=== PATIENT | female | born 1975 | race Two or more races ===

== ENCOUNTER 2017-05-16 12:44 | Outpatient (CLI) | payer OTHER | END 2017-05-16 12:49 | disposition home or self-care (01) | LOC: SONOGRAMA 12:44 | DX: N84.0 Polyp of corpus uteri (principal); D25.9 Leiomyoma of uterus, unspecified ==

== ENCOUNTER → 2019-09-30 11:44 | Outpatient (CLI) | payer OTHER | END | disposition home or self-care (01) | LOC: LAB 11:44 | DX: E03.8 Other specified hypothyroidism (principal); D63.8 Anemia in other chronic diseases classified elsewhere; N30.90 Cystitis, unspecified without hematuria; E78.00 Pure hypercholesterolemia, unspecified; R73.09 Other abnormal glucose ==

== ENCOUNTER 2019-11-26 10:26 | Inpatient (IN) | payer OTHER ==
[~2019-11-26] VITALS: Ht 157.5 cm; Wt 57.6 kg
[2019-12-10] MEDS ORDERED: SYNTHROID150 MCG PO (13:03)
[2019-12-10] MEDS ORDERED: [UNRECOGNIZED DRUG - OTHER] PO (13:04)
[2019-12-17] MEDS ORDERED: KETO10TA2 PO (08:05)
[2019-12-19] MEDS ORDERED: KETO10TA2 PO (10:34)
[2019-12-19] MEDS ORDERED: OXYC1TAB9 PO (10:34)
== END 2019-12-19 11:14 | disposition home or self-care (01) | DRG 743 ==
LOC: ADM 12-02 08:45 → EDSTATUS 12-02 08:45 → OB/GYN 12-09 08:45 → O/R 12-16 07:10 → OB/GYN 12-16 08:45
PROVIDERS: ADMIT Obstetrics & Gynecology Maternal & Fetal Medicine; ATTEND Obstetrics & Gynecology Maternal & Fetal Medicine
PROC: 0UT90ZL Resection of Uterus, Supracervical, Open Approach (ICD-10-PCS; principal; 2019-12-16 11:15)
DX: D25.0 Submucous leiomyoma of uterus (principal); D25.1 Intramural leiomyoma of uterus; D25.2 Subserosal leiomyoma of uterus; N92.0 Excessive and frequent menstruation with regular cycle; D64.9 Anemia, unspecified; N84.0 Polyp of corpus uteri

== ENCOUNTER 2024-07-13 13:39 | Outpatient (CLI) | payer OTHER ==
[~2024-07-13 13:39] MED LIST: KETO10TA2 PO; OXYC1TAB9 PO; SYNTHROID150 MCG PO; [UNRECOGNIZED DRUG - OTHER] PO
== END 2024-07-13 13:42 | disposition home or self-care (01) ==
LOC: SONOGRAMA 13:39
PROVIDERS: ATTEND Pathology Anatomic Pathology & Clinical Pathology
DX: E04.2 Nontoxic multinodular goiter (principal)